=== PATIENT | male | born 1960 | race Caucasian/White ===

== ENCOUNTER 2017-02-25 13:25 | Emergency (ER) | payer OTHER ==
[~2017-02-25] VITALS: Ht 175.3 cm; Wt 90.7 kg
[2017-02-25 13:26] VITALS: BP 177/102
[2017-02-25] MEDS ORDERED: HUMALOG100 UNIT/1 SUBQ (13:29)
[2017-02-25] MEDS ORDERED: LANTUS100 UNIT/M SUBQ (13:29)
== END 2017-02-25 14:18 | disposition home or self-care (01) ==
LOC: ER 13:25
DX: R09.89 Other specified symptoms and signs involving the circulatory and respiratory systems (principal); R13.10 Dysphagia, unspecified; E11.9 Type 2 diabetes mellitus without complications